=== PATIENT | male | born 1990 | race Hispanic/Latino ===

== ENCOUNTER 2018-03-16 02:32 | Emergency (ER) | payer SELFPAY ==
[2018-03-16 02:56] VITALS: BMI 20.3
[2018-03-16 02:59] VITALS: RESP 18; O2SAT 97
--- NOTE | 2018-03-16 05:00 | ED PDOC ---
HPI: Psych/Substance Abuse Time Seen by Provider: 03/16/18 02:54 Chief Complaint (Nursing): Alcohol Ingestion ED Caveat: Acuity of Condition, Intoxicated History Per: Patient, EMS History/Exam Limitations: no limitations Current Symptoms Are (Timing): Still Present Additional Complaint(s): Patient states he drank too much alcohol last night. Denies drugs or any other injuries. Was picked up by EMS for public intoxication. Past Medical History Reviewed: Unable To Obtain Vital Signs: Last Vital Signs Temp 97.6 F 03/16/18 02:56 Pulse 100 H 03/16/18 02:56 Resp 18 03/16/18 02:56 BP 115/75 03/16/18 02:56 Pulse Ox 97 03/16/18 02:56 - Family History Family History: States: Unknown Family Hx - Allergies Allergies/Adverse Reactions: Allergies Allergy/AdvReac Type Severity Reaction Status Date / Time latex Allergy HEADACHE Verified 03/16/18 02:56 Review of Systems Review Of Systems: ROS cannot be obtained secondary to pt's inabilty to answer questions. Physical Exam - Reviewed Nursing Documentation Reviewed: Yes Vital Signs Reviewed: Yes - Physical Exam Appears: Positive for: Non-toxic, No Acute Distress. Negative for: Well (INtoxicated appearing) Head Exam: Positive for: ATRAUMATIC, NORMAL INSPECTION, NORMOCEPHALIC Skin: Positive for: Normal Color, Warm, DRY Eye Exam: Positive for: EOMI, Normal appearance, PERRL ENT: Positive for: Normal ENT Inspection Neck: Positive for: Normal, Painless ROM Cardiovascular/Chest: Positive for: Regular Rate, Rhythm Respiratory: Positive for: CNT, Normal Breath Sounds Gastrointestinal/Abdominal: Positive for: Normal Exam, Soft Back: Positive for: Normal Inspection Extremity: Positive for: Normal ROM Neurologic/Psych: Positive for: Alert, Oriented (x3 ), Other (Slurring speech). Negative for: Motor/Sensory Deficits - ECG O2 Sat by Pulse Oximetry: 97 Pulse Ox Interpretation: Normal Medical Decision Making Medical Decision MakinAM Patient presenting with alcohol intoxication --No injuries, vitals stable --Will observe till sober 630AM --Patient is now awake, alert, steady gait --Stable for discahrge Disposition - Clinical Impression Clinical Impression: Alcohol abuse - Patient ED Disposition Is Patient to be Admitted: No - Disposition Referrals: Alcoholics Anonymous [Outside] Disposition: Routine/Home Disposition Time: 06:22 Condition: STABLE Instructions: Alcohol Abuse and Alcoholism (DC) Forms: 360T (Jordanian)
[2018-03-16 07:09] VITALS: BP 111/73; PULSE 88; TEMP 98.1
== END 2018-03-16 06:15 | disposition home or self-care (01) ==
LOC: H.ER 02:32
DX: F10.10 Alcohol abuse, uncomplicated (principal)
CPT/HCPCS: 82948; 99283; G0480